=== PATIENT | female | born 1940 | race American Indian/Alaskan Native ===

== ENCOUNTER 2016-10-27 10:00 | Day surgery (SDC) | payer MEDICARE ==
[2016-10-27] MEDS ORDERED: NACL 0.9% 1000 ML 1,000 ML IV SCH (13:00)
--- NOTE | 2016-10-27 13:00 | Anesthesia Day of Surgery ---
Anesthesia Day of Surgery - Day of Surgery Patient Examined: Yes Patient H&P Reviewed: Yes Patient is NPO: Yes
--- NOTE | 2016-10-27 13:00 | Anesthesia Consultation ---
Anesthesia Consult and Med Hx Date of service: 10/27/16 - Airway Anesthetic Teeth Evaluation: Poor (peridontitis) ROM Head & Neck: Adequate Mental/Hyoid Distance: Adequate Mallampati Class: Class II Intubation Access Assessment: Probably Good - Pre-Operative Health Status ASA Pre-Surgery Classification: ASA2 Proposed Anesthetic Plan: MAC - Pulmonary Hx Smoking: Yes (08/12 p/day x 60 years)
[2016-10-27] MEDS ORDERED: DIPRIVAN 10 MG/ML IV ONE ×3 (15:54→16:48)
[2016-10-27] MEDS ORDERED: XYLOCAINE MPF 2% ONE (15:57)
--- NOTE | 2016-10-27 16:47 | Operative Report ---
Operative Report Operative Report: Date of procedure: 10/27/2016 Procedure: Colonoscopy multiple hot biopsy polypectomies, multiple polyp ablations, Hemoclip application over a polypectomy site. Attending physician: Juan Francisco Briones MD Jitterbug Operator: Juan Francisco Briones MD Indication: Patient is a 76-year-old female who presented for colorectal cancer screening. A colonoscopy is done to evaluate patient so that treatment may be directed based on the findings. Consent: Informed consent was obtained after advising the patient and family regarding nature of this procedure, its indications, potential benefits as well as possible complications including but not limited to bleeding perforation and adverse reaction to medication, infection as well as other cardiopulmonary complications. An informed written and verbal consent was then obtained after due opportunity was provided for questions and answers. Monitoring: Patient was monitored continuously with pulse oximetry and electrocardiographic recordings as well as blood pressure recordings. Vital signs remained stable throughout this procedure with no untoward events. Preoperative assessment: Patient was assessed immediately prior to this procedure for capacity to tolerate monitored anesthesia care and moderate sedation as well as general anesthesia. Patient's ASA classification is 2, Mallampati class is 2, Hyomental distance is 3. Instrument: Syncplicityn videocolonoscope Medications: Propofol given intravenously in divided doses. For details please refer to anesthesia records. Description of procedure: Patient was placed in the left lateral decubitus position after achieving sedation, a digital rectal examination was performed following which the colonoscope was introduced into the anal verge and advanced to the cecum which was identified by the cecal valve, the appendiceal orifice, as well as by the cecal strap and direct transillumination. The colonoscope was subsequently withdrawn with careful inspection of all mucosal surfaces. Patient tolerated this procedure well and was subsequently taken to the recovery room. The following findings were noted. Findings: Patient had densely inherent stool in the cecum ascending colon and also in the descending colon. Patient had multiple diverticula in the sigmoid colon and descending colon. In the rectum, patient had over 10 diminutive polyps. All polyps were flat. The largest polyp measures approximately 8 mm was removed by hot biopsy polypectomy. The rest of the polyps measured between 5 and 8 mm and removed by hot biopsy polypectomy. There were diminutive polyps measuring approximately 3-4 mm there were ablated. In the sigmoid colon , patient had 4 diminutive polyps are removed by hot biopsy polypectomy. There were no other gross mucosal abnormalities seen. On retroflex view at the anal verge patient had internal hemorrhoids. Impression: Substantial retained stool. Multiple colon polyps. Multiple rectal polyps. Patient status post hot biopsy polypectomy, multiple polyp ablations. A Hemoclip was applied over polypectomy site in the rectum. Internal hemorrhoids. Diverticulosis. Plan: Follow pathology report. Consider repeat colonoscopy in 6-12 months given the patient has substantial retained stool. High-fiber diet.
--- NOTE | 2016-10-27 16:48 | Discharge Summary ---
Short Stay Discharge Plan Activity: advance as tolerated Weight Bearing Status: Weight Bear as Tolerated Diet: regular Follow up with: JOHN DAVIS DO [Primary Care Provider] - 7 Days
--- NOTE | 2016-10-27 17:38 | Post Anesthesia Evaluation ---
- Post Anesthesia Evaluation Patient Participated: No (pt resting comfortable) Airway Patent: Yes Stable Respiratory Function: Yes Nausea/Vomiting: No Temp > 96.8F: Yes Pain Manageable: Yes Adequeate Hydration: Yes Anesthesia Complications: No Block Receding Appropriately: Not Applicable Patient on Ventilator: No
[2016-10-27 17:42] VITALS: BP 134/67
== END 2016-10-27 10:01 | disposition home or self-care (01) ==
LOC: GIO 10:00
PROVIDERS: ATTEND Internal Medicine Gastroenterology
DX: Z12.11 Encounter for screening for malignant neoplasm of colon (principal); K62.1 Rectal polyp; K63.5 Polyp of colon; K64.8 Other hemorrhoids; K57.30 Diverticulosis of large intestine without perforation or abscess without bleeding; F17.210 Nicotine dependence, cigarettes, uncomplicated
CPT/HCPCS: 45384; 45388; 88305; J2704